=== PATIENT | male | born 1960 | race American Indian/Alaskan Native ===

== ENCOUNTER 2016-10-13 21:01 | Emergency (ER) | payer OTHER ==
[~2016-10-13 21:01] MED LIST: ADRENALIN ONE; CORDARONE IV ONE; INTROPIN DRIP 800 MG/D5W 250 ML IV ONE; MAGNESIUM SULFATE ONE; SODIUM BICARBONATE IV ONE; XYLOCAINE CARDIAC IV ONE; XYLOCAINE/D5W 2GM/500ML DRIP IV ONE
--- NOTE | 2016-10-13 21:16 | Emergency Department Report ---
HPI - General Time Seen by Provider: 10/13/16 21:10 - HPI HPI: Room 20 Patient is a 56-year-old male presenting with chief complaint cardiac arrest. Per EMS the patient's last known well time was approximately 1 hour prior to their arrival. EMS was called after the patient was found unresponsive on the living room floor. EMS states they arrived on scene at 20:26 to find the patient in asystole. CPR/ACLS was initiated and the patient was intubated. EMS states the patient was originally found in asystole but then converted to V. fib after epinephrine was administered. EMS states they defibrillated the patient a total of 2 times and thought they had a pulse upon arrival to the ED. The patient was brought into the ED he was found to be in V. fib was immediately defibrillated. ACLS protocols were continued with there was no return of spontaneous circulation Location: Cardiovascular system Duration: [see above] Quality: Cardiac arrest Severity: Severe Modifying factors: [see above] Context: [see above] Mode of transportation: [not driving] ED Past Medical Hx - Past Medical History Hx Hypertension: Yes Hx Congestive Heart Failure: Yes Hx COPD: Yes (emphysema) Additional medical history: prostate - Surgical History Additional Surgical History: Right leg, Abdominal sx - Family History Family history: no significant - Social History Smoking Status: Unknown if ever smoked - Medications Home Medications: Home Medications Medication Instructions Recorded Confirmed Last Taken Type Aspirin 81 mg PO DAILY #30 tab.chew 08/26/16 Unknown Rx Budesoni/Formoterol 80-4.5(Nf) 4.5 mcg PO PRN #30 inha 08/26/16 Unknown Rx [Symbicort 80-4.5 (Nf)] Carvedilol [Coreg] 25 mg PO BID #30 tablet 08/26/16 Unknown Rx Finasteride [Proscar] 5 mg PO QDAY #30 tablet 08/26/16 Unknown Rx Furosemide [Lasix TAB] 20 mg PO QDAY #30 tablet 08/26/16 Unknown Rx Ipratropium/Albuterol Sulfate 1 ampul IH Q4HR PRN #30 ampul.neb 08/26/16 Unknown Rx [Duoneb 0.5 mg-3 mg/3 ml Soln] Levothyroxine [Synthroid] 125 mcg PO QAM #30 tablet 08/26/16 Unknown Rx Lisinopril [Zestril TAB] 10 mg PO QDAY #30 tablet 08/26/16 Unknown Rx Thiamine [Vitamin B-1] 100 mg PO QDAY #30 tablet 08/26/16 Unknown Rx hydrALAZINE [Apresoline TAB] 25 mg PO Q8HR #90 tablet 08/26/16 Unknown Rx ED Review of Systems ROS: Stated complaint: RESPIRATORY ARREST Other details as noted in HPI Comment: Unobtainable due to pts medical conditions Physical Exam - Physical Exam Physical Exam: GENERAL: The patient is well-developed well-nourished male lying on stretcher receiving chest compressions and being bagged via ET tube. [] HEENT: Normocephalic. Atraumatic. NECK: Trachea midline CHEST/LUNGS: No spontaneous respirations. Breath sounds equal bilaterally with bagging HEART/CARDIOVASCULAR: No heart sounds. V. fib on monitor ABDOMEN: Abdomen is soft, nontender. Patient has normal bowel sounds. There is no abdominal distention. SKIN: There is no diaphoresis. NEURO: GCS 3T MUSCULOSKELETAL: TThere is no evidence of acute injury. ED Medical Decision Making - Differential Diagnosis cardiac arrest Critical care attestation.: If time is entered above; I have spent that time in minutes in the direct care of this critically ill patient, excluding procedure time. ED Disposition Clinical Impression: Cardiac arrest Disposition: DC-20 Is pt being admited?: No Does the pt Need Aspirin: No Condition: Poor Time of Disposition: 21:11 (patient )
== END 2016-10-14 01:50 ==
LOC: ED 21:01
DX: I46.9 Cardiac arrest, cause unspecified (principal); I10 Essential (primary) hypertension; I50.9 Heart failure, unspecified; J44.9 Chronic obstructive pulmonary disease, unspecified; Z79.82 Long term (current) use of aspirin
CPT/HCPCS: 92950; 99285; J0171; J0282; J1265; J2001; J3475